=== PATIENT | female | born 1975 | race Caucasian/White ===

== ENCOUNTER 2021-04-08 07:46 | Emergency (ER) | payer OTHER ==
[~2021-04-08] VITALS: Ht 157.5 cm; Wt 69.3 kg
[2021-04-08 08:01] VITALS: BP 176/119
[2021-04-08] MEDS ORDERED: diphenhydrAMINE HCL 25 MG CAPSULE PO ONE ×2 (08:15→08:17)
[2021-04-08] MEDS ORDERED: diphenhydrAMINE 50 MG/ML VIAL IVP ONE (08:15)
[2021-04-08] MEDS ORDERED: predniSONE 20 MG TABLET PO ONE (08:15)
[2021-04-08] MEDS ORDERED: PRED50TA PO (08:38)
--- NOTE | 2021-04-08 08:39 | PHYS DOC ---
Past History Past Medical History: Asthma Past Surgical History: , Oophorectomy Alcohol Use: None Drug Use: None General Adult EDM: Chief Complaint: SKIN PROBLEM HPI: HPI: 45-year-old female presents with hives. The started yesterday on her bilateral upper extremities. She also has a couple scattered areas on her abdomen. She felt like her throat was a little itchy so she got concerned and came to the emergency room. She did put some calamine on it yesterday which seemed to help a little bit but it did not get better. She does not recall any new exposures though she may have used a new hand wildlife and game protector. She denies any new ingestions. She has not had any difficulty breathing or swallowing. She has had hives in the past and Benadryl has worked. She did not take any Benadryl today. Review of Systems: Review of Systems: Constitutional: Denies fever or chills Eyes: Denies change in visual acuity HENT: Denies nasal congestion or sore throat Respiratory: Denies cough or shortness of breath Cardiovascular: Denies chest pain or edema GI: Denies abdominal pain, nausea, vomiting, bloody stools or diarrhea : Denies dysuria Musculoskeletal: Denies back pain or joint pain Integument: Urticaria Neurologic: Denies headache, focal weakness or sensory changes Endocrine: Denies polyuria or polydipsia Lymphatic: Denies swollen glands Psychiatric: Denies depression or anxiety Current Medications: Current Meds: Current Medications Medications (Trade) Dose Ordered Sig/Mabel Start Time Stop Time Status Last Admin Dose Admin Diphenhydramine HCl (Benadryl) 25 mg STK-MED ONCE 04/08/21 08:17 04/08/21 08:17 DC Prednisone (Prednisone) 60 mg 1X ONCE 04/08/21 08:15 04/08/21 08:16 DC 04/08/21 08:18 60 MG Allergies: Allergies: Allergies Coded Allergies Type Severity Reaction Last Updated Verified acetaminophen Allergy Unknown 08/15/14 No hydrocodone Allergy Unknown 08/15/14 No Physical Exam: PE: Constitutional: Well developed, well nourished, no acute distress, non-toxic appearance. [] HENT: Normocephalic, atraumatic, bilateral external ears normal, oropharynx moist, no oral exudates, nose normal. [] Eyes: PERRLA, EOMI, conjunctiva normal, no discharge. [] Neck: Normal range of motion, no tenderness, supple, no stridor. [] Cardiovascular:Heart rate regular rhythm, no murmur [] Lungs & Thorax: Bilateral breath sounds clear to auscultation [] Abdomen: Bowel sounds normal, soft, no tenderness, no masses, no pulsatile masses. [] Skin: Urticaria of the bilateral lower arms, a few locations on the abdomen. [] Back: No tenderness, no CVA tenderness. [] Extremities: No tenderness, no cyanosis, no clubbing, ROM intact, no edema. [] Neurologic: Alert and oriented X 3, normal motor function, normal sensory function, no focal deficits noted. [] Psychologic: Affect normal, judgement normal, mood normal. [] Current Patient Data: Vital Signs: Vital Signs Date Time Temp Pulse Resp B/P (MAP) Pulse Ox O2 Delivery O2 Flow Rate FiO2 04/08/21 08:01 103 20 176/119 100 EKG: EKG: [] Radiology/Procedures: Radiology/Procedures: [] Heart Score: C/O Chest Pain: N/A Risk Factors: Risk Factors: DM, Current or recent (<one month) smoker, HTN, HLP, family history of CAD, obesity. Risk Scores: Score 0 - 3: 2.5% MACE over next 6 weeks - Discharge Home Score 4 - 6: 20.3% MACE over next 6 weeks - Admit for Clinical Observation Score 7 - 10: 72.7% MACE over next 6 weeks - Early Invasive Strategies Course & Med Decision Making: Course & Med Decision Making Pertinent Labs and Imaging studies reviewed. (See chart for details) We have treated the patient with 50 mg of Benadryl and 60 mg of prednisone in the ED. I will discharge her with a prescription for 5 days of prednisone. She has had no further complications while she was in the ED. She is stable for discharge at this time. [] Tony Disclaimer: Tony Disclaimer: This electronic medical record was generated, in whole or in part, using a voice recognition dictation system. Departure Departure: Impression: Primary Impression: Acute urticaria Disposition: HOME / SELF CARE / HOMELESS Condition: STABLE Referrals: MIA RICHARDS (PCP) Patient Instructions: Allergies, Generic Scripts Prednisone (PREDNISONE) 50 Mg Tablet 1 TAB PO DAILY for allergic reaction for 4 Days, #4 TAB Prov: ZAHIRA GARZA DO 04/08/21 ZAHIRA GARZA DO Apr 08, 2021 08:39
== END 2021-04-08 08:56 | disposition home or self-care (01) ==
LOC: ER 07:46
DX: L50.8 Other urticaria (principal); J45.909 Unspecified asthma, uncomplicated; Z88.5 Allergy status to narcotic agent; Z88.8 Allergy status to other drugs, medicaments and biological substances
CPT/HCPCS: 99283; J7512; Q0163